=== PATIENT | female | born 1965 | race Caucasian/White ===

== ENCOUNTER 2016-10-23 06:28 | Day surgery (SDC) | payer BC ==
[2016-10-23] MEDS ORDERED: Lactated Ringers 1,000 ML IV SCH (07:00)
[2016-10-23] MEDS ORDERED: fentaNYL 100 MCG/2 ML SDV ONE (07:07)
[2016-10-23] MEDS ORDERED: Propofol 200 MG/20 ML SDV ONE (07:07)
[2016-10-23] MEDS ORDERED: Midazolam 1 MG/ML 2 ML SDV ONE (07:07)
[2016-10-23 09:09] VITALS: BP 110/69
--- NOTE | 2016-10-23 11:54 | OR ---
DATE OF PROCEDURE: 10/23/2016 PREOPERATIVE DIAGNOSIS: Colon cancer screening. POSTOPERATIVE DIAGNOSIS: Diverticulosis. PROCEDURE: Colonoscopy to the cecum. ANESTHESIA: IV anesthesia with monitored anesthesia care. INDICATIONS: This 51-year-old white female is referred for a colonoscopy for colon cancer screening. She has never had a colonoscopic exam. I counseled her for the procedure including risks and alternatives, and she gave her informed consent to proceed. DESCRIPTION OF PROCEDURE: The patient was placed in the left lateral decubitus position. IV anesthesia was administered by the Anesthesia Service. Time-out was held. A rectal exam was performed, which was unremarkable. The flexible video Olympus colonoscope was introduced through her anus, up her rectum, and out her colon all the way to the cecum. To accomplish this, we did have to apply some abdominal compression. Once the cecum was reached, the scope was slowly withdrawn, examining the mucosa throughout. No mucosal abnormalities noted until we reached the left colon area. Here, we saw a single diverticulum. There was no bleeding or inflammation associated with it. The scope was brought back into the rectum, where it was retroflexed. The distal rectum appeared unremarkable. The scope was straightened and removed. She tolerated the procedure well. Barrington Angulo MD /[id number] NINO
== END 2016-10-23 09:26 | disposition home or self-care (01) ==
LOC: JP.SDS 06:28 → MERGE 07:30 → JP.SDS 09:26
PROVIDERS: ATTEND Surgery
PROC: 0DJD8ZZ Inspection of Lower Intestinal Tract, Via Natural or Artificial Opening Endoscopic (ICD-10-PCS; principal; 2016-10-23)
DX: Z12.11 Encounter for screening for malignant neoplasm of colon (principal); K57.90 Diverticulosis of intestine, part unspecified, without perforation or abscess without bleeding
CPT/HCPCS: 45378; J2250; J2704; J3010; J7120